=== PATIENT | female | born 1935 | race Caucasian/White ===

== ENCOUNTER 2018-08-30 21:59 | Inpatient (IN) | payer MEDICARE, BC ==
[2018-08-30] MEDS ORDERED: IPRATROPIUM-ALBUTEROL 3 ML NEB INHALATION STA (22:22)
[2018-08-30 22:53] LABS: Basophils % (A) 0 %; Eosinophils # (A) 1.1 k/uL (0-0.7); Eosinophils % (A) 10 %; HCT 39.4 % (34.0-46.0); HGB 12.6 gm/dL (11.4-16.0); Lymphocytes # (A) 1.7 k/uL (1.0-4.8); Lymphocytes % (A) 16 %; MCHC 32.1 g/dL (31.0-37.0); MCV 96.6 fL (80.0-100.0); Mean Platelet Volume 7.3; Monocytes # (A) 0.4 k/uL (0-1.0); Monocytes % (A) 4 %; Neutrophils # (A) 7.4 k/uL (1.3-7.7); Neutrophils % (A) 69 %; Platelet Count 307 k/uL (150-450); RBC 4.08 m/uL (3.80-5.40); RDW 12.2 % (11.5-15.5); WBC 10.7 k/uL (3.8-10.6)
[2018-08-30 23:03] LABS: Partial Thromboplastin Time 25.8 sec (22.0-30.0); Prothrombin Time 10.4 sec (9.0-12.0)
[2018-08-30 23:04] LABS: ALT 24 U/L (9-52); AST 28 U/L (14-36); African American GFR (CKD) >90 (>60 ml/min/1.73 sqM); Albumin 4.4 g/dL (3.5-5.0); Alkaline Phosphatase 118 U/L (38-126); Anion Gap 12 mmol/L; Blood Urea Nitrogen 23 mg/dL (7-17); Calcium 9.2 mg/dL (8.4-10.2); Carbon Dioxide 25 mmol/L (22-30); Chloride 103 mmol/L (98-107); Glucose 135 mg/dL (74-99); Potassium 3.6 mmol/L (3.5-5.1); Sodium 140 mmol/L (137-145); Total Bilirubin 0.5 mg/dL (0.2-1.3); Total Protein 7.4 g/dL (6.3-8.2)
--- NOTE | 2018-08-30 23:08 | XR ---
EXAM: XR Chest, 1 View CLINICAL HISTORY: Pain TECHNIQUE: Frontal view of the chest. COMPARISON: No relevant prior studies available. FINDINGS: Lungs: Hyperinflated lungs suggesting COPD. No consolidation. Pleural space: Unremarkable. No pneumothorax. Heart: Unremarkable. No cardiomegaly. Mediastinum: Unremarkable. Bones/joints: Unremarkable. IMPRESSION: Hyperinflated lungs suggesting COPD.
--- NOTE | 2018-08-30 23:23 | ED ---
SOB HPI - General Chief Complaint: Shortness of Breath Stated Complaint: ROYER Time Seen by Provider: 08/30/18 22:14 Source: patient Mode of arrival: ambulatory Limitations: no limitations - History of Present Illness Initial Comments: This patient is an 83-year-old woman presenting to be evaluated as she is having what she is describing as a more or less intractable coughing spell tonight. She was in her usual state of health until approximately 5 days ago when she developed a bit of coughing. She saw her primary physician in the clinic and was started on antibiotic. She has taken this as directed but states she is not really getting much better. has not noted fevers. She is not having chest pain. She is having some mild shortness of breath and a cough which is for the most part not productive of any sputum. MD Complaint: shortness of breath, cough Onset/Timin -: days(s) Severity: moderate Consistency: constant Improves With: nothing Worsens With: nothing Context: recent URI Treatments Prior to Arrival: other (Antibiotic) - Related Data Home Medications Medication Instructions Recorded Confirmed Levofloxacin [Levaquin] 500 mg PO DAILY 08/30/18 08/30/18 Multivitamins, Thera [Multivitamin 1 tab PO DAILY 08/30/18 08/30/18 (formulary)] Previous Rx's Medication Instructions Recorded Albuterol Inhaler [Ventolin Hfa 1 - 2 puff INHALATION Q6HR PRN #1 08/31/18 Inhaler] inhaler predniSONE 20 mg PO BID #8 tab 08/31/18 Allergies Allergy/AdvReac Type Severity Reaction Status Date / Time No Known Allergies Allergy Verified 08/30/18 22:22 Review of Systems ROS Statement: Those systems with pertinent positive or pertinent negative responses have been documented in the HPI. ROS Other: All systems not noted in ROS Statement are negative. Constitutional: Denies: fever, chills, weakness ENT: Reports: other (Rhinorrhea). Denies: congestion Respiratory: Reports: cough, dyspnea, wheezes. Denies: hemoptysis Cardiovascular: Denies: chest pain, palpitations, edema, syncope Gastrointestinal: Denies: abdominal pain, vomiting, diarrhea Genitourinary: Denies: dysuria, hematuria Musculoskeletal: Denies: back pain Skin: Denies: rash Neurological: Denies: headache, weakness, numbness Past Medical History Past Medical History: No Reported History Past Surgical History: Hysterectomy Additional Past Surgical History / Comment(s): left breast cyst removed, Past Psychological History: No Psychological Hx Reported Smoking Status: Former smoker Past Alcohol Use History: Daily Past Drug Use History: None Reported General Exam Limitations: no limitations General appearance: alert, in no apparent distress Head exam: Present: atraumatic, normocephalic Eye exam: Present: normal appearance. Absent: scleral icterus, conjunctival injection ENT exam: Present: normal oropharynx Neck exam: Present: normal inspection, full ROM Respiratory exam: Present: wheezes (Minimal expiratory wheeze), other (Patient is having frequent nonproductive cough during the exam.). Absent: respiratory distress, rales, rhonchi, stridor, accessory muscle use, decreased breath sounds, prolonged expiratory Cardiovascular Exam: Present: regular rate, normal rhythm, normal heart sounds. Absent: systolic murmur, diastolic murmur, rubs, gallop GI/Abdominal exam: Present: soft. Absent: distended, tenderness, guarding, rebound, rigid Extremities exam: Present: normal inspection, normal capillary refill. Absent: pedal edema, calf tenderness Back exam: Present: normal inspection. Absent: CVA tenderness (R), CVA tenderness (L) Neurological exam: Present: alert Skin exam: Present: warm, dry, intact, normal color. Absent: rash Course Vital Signs 08/30/18 08/30/18 08/30/18 22:02 22:16 22:38 Temperature 98.3 F Pulse Rate 111 H 90 Respiratory 28 H 34 H Rate Blood Pressure 183/93 O2 Sat by Pulse 87 L Oximetry 08/30/18 08/31/18 08/31/18 22:46 00:00 00:19 Temperature Pulse Rate 89 88 88 Respiratory Rate Blood Pressure O2 Sat by Pulse Oximetry 08/31/18 08/31/18 01:13 04:16 Temperature Pulse Rate 81 73 Respiratory 18 20 Rate Blood Pressure 137/78 110/56 O2 Sat by Pulse 89 L 94 L Oximetry Medical Decision Making - Medical Decision Making Patient is an 83-year-old woman with cough and mild dyspnea. She is given albuterol treatment which did give marketed improvement in her cough. She feels that her breathing is almost back at her baseline. She did request to go home but she does have persistent low pulse oximetry readings. When taken off the supplemental nasal cannula oxygen she drops to the upper 80s and the pulse oximetry reading. She does not have known history of COPD. Given this patient be admitted to have a day of steroid treatment, to have nebulized medications, and to continue her antibiotics. Case discussed with Dr. Gandhi who will admit. - Lab Data Result diagrams: 08/30/18 22:37 08/30/18 22:37 Lab Results 08/30/18 08/30/18 08/30/18 Range/Units 22:37 22:37 22:37 WBC 10.7 H (3.8-10.6) k/uL RBC 4.08 (3.80-5.40) m/uL Hgb 12.6 (11.4-16.0) gm/dL Hct 39.4 (34.0-46.0) % MCV 96.6 (80.0-100.0) fL MCH 31.0 (25.0-35.0) pg MCHC 32.1 (31.0-37.0) g/dL RDW 12.2 (11.5-15.5) % Plt Count 307 (150-450) k/uL Neutrophils % 69 % Lymphocytes % 16 % Monocytes % 4 % Eosinophils % 10 % Basophils % 0 % Neutrophils # 7.4 (1.3-7.7) k/uL Lymphocytes # 1.7 (1.0-4.8) k/uL Monocytes # 0.4 (0-1.0) k/uL Eosinophils # 1.1 H (0-0.7) k/uL Basophils # 0.0 (0-0.2) k/uL PT 10.4 (9.0-12.0) sec INR 1.0 (<1.2) APTT 25.8 (22.0-30.0) sec D-Dimer (<0.60) mg/L FEU Sodium 140 (137-145) mmol/L Potassium 3.6 (3.5-5.1) mmol/L Chloride 103 (98-107) mmol/L Carbon Dioxide 25 (22-30) mmol/L Anion Gap 12 mmol/L BUN 23 H (7-17) mg/dL Creatinine 0.63 (0.52-1.04) mg/dL Est GFR (CKD-EPI)AfAm >90 (>60 ml/min/1.73 sqM) Est GFR (CKD-EPI)NonAf 83 (>60 ml/min/1.73 sqM) Glucose 135 H (74-99) mg/dL Calcium 9.2 (8.4-10.2) mg/dL Total Bilirubin 0.5 (0.2-1.3) mg/dL AST 28 (14-36) U/L ALT 24 (9-52) U/L Alkaline Phosphatase 118 (38-126) U/L Troponin I (0.000-0.034) ng/mL NT-Pro-B Natriuret Pep pg/mL Total Protein 7.4 (6.3-8.2) g/dL Albumin 4.4 (3.5-5.0) g/dL 08/30/18 08/30/18 08/30/18 Range/Units 22:37 22:37 22:37 WBC (3.8-10.6) k/uL RBC (3.80-5.40) m/uL Hgb (11.4-16.0) gm/dL Hct (34.0-46.0) % MCV (80.0-100.0) fL MCH (25.0-35.0) pg MCHC (31.0-37.0) g/dL RDW (11.5-15.5) % Plt Count (150-450) k/uL Neutrophils % % Lymphocytes % % Monocytes % % Eosinophils % % Basophils % % Neutrophils # (1.3-7.7) k/uL Lymphocytes # (1.0-4.8) k/uL Monocytes # (0-1.0) k/uL Eosinophils # (0-0.7) k/uL Basophils # (0-0.2) k/uL PT (9.0-12.0) sec INR (<1.2) APTT (22.0-30.0) sec D-Dimer 0.80 H (<0.60) mg/L FEU Sodium (137-145) mmol/L Potassium (3.5-5.1) mmol/L Chloride (98-107) mmol/L Carbon Dioxide (22-30) mmol/L Anion Gap mmol/L BUN (7-17) mg/dL Creatinine (0.52-1.04) mg/dL Est GFR (CKD-EPI)AfAm (>60 ml/min/1.73 sqM) Est GFR (CKD-EPI)NonAf (>60 ml/min/1.73 sqM) Glucose (74-99) mg/dL Calcium (8.4-10.2) mg/dL Total Bilirubin (0.2-1.3) mg/dL AST (14-36) U/L ALT (9-52) U/L Alkaline Phosphatase (38-126) U/L Troponin I 0.017 (0.000-0.034) ng/mL NT-Pro-B Natriuret Pep 171 pg/mL Total Protein (6.3-8.2) g/dL Albumin (3.5-5.0) g/dL - EKG Data -: EKG Interpreted by Me EKG shows normal: sinus rhythm (With PACs, rate 86 bpm), axis (Normal), intervals (Normal), QRS complexes (Normal), ST-T waves (Normal) Rate: normal Disposition Clinical Impression: Bronchitis Disposition: ADMITTED IP TO THIS [facility] Condition: Fair Is patient prescribed a controlled substance at d/c from ED?: No
[2018-08-30] MEDS ORDERED: ALBUTEROL NEBULIZED 2.5 MG/3 ML INHALATION STA (23:31)
[2018-08-30] MEDS ORDERED: predniSONE 20 MG TAB PO STA (23:31)
--- NOTE | 2018-08-31 02:46 | CT ---
EXAM: CT Angiography Chest With Intravenous Contrast CLINICAL HISTORY: Pain TECHNIQUE: Axial computed tomographic angiography images of the chest with intravenous contrast using pulmonary embolism protocol. CTDI is 0.085, 0. 085, 1.5, 1.5, 1.5, 6 mGy and DLP is 184.3 mGy-cm. This CT exam was performed using one or more of the following dose reduction techniques: automated exposure control, adjustment of the mA and/or kV according to patient size, and/or use of iterative reconstruction technique. MIP reconstructed images were created and reviewed. COMPARISON: No relevant prior studies available. FINDINGS: Pulmonary arteries: No evidence of pulmonary embolus. Aorta: No acute findings. No thoracic aortic aneurysm. Lungs: Probable atelectasis and scarring within the right middle lobe. Infectious process is not excluded. Moderate bronchial wall thickening with mucus impaction seen within the lower lobes which may represent bronchitis. No mass. Pleural space: Unremarkable. No significant effusion. No pneumothorax. Heart: Unremarkable. No cardiomegaly. No significant pericardial effusion. No evidence of RV dysfunction. Bones/joints: No acute fracture. No dislocation. Soft tissues: Unremarkable. Lymph nodes: Subcentimeter mediastinal and hilar lymph nodes, likely reactive. IMPRESSION: 1. No evidence of pulmonary embolus. 2. Probable atelectasis and scarring within the right middle lobe. An infectious process is not excluded. 3. Moderate bronchial wall thickening with mucus impaction seen within the lower lobes which may represent bronchitis.
[2018-08-31] MEDS ORDERED: ALBUTEROL NEBULIZED 2.5 MG/3 ML INHALATION PRN (02:53)
[2018-08-31] MEDS: SODIUM CHLORIDE 0.9% 1,000 ML IV SCH (05:02)
[2018-08-31] MEDS: IPRATROPIUM-ALBUTEROL 3 ML NEB INHALATION SCH ×4 (08:23→19:59)
[2018-08-31] MEDS: predniSONE 20 MG TAB PO SCH (09:08)
[2018-08-31] MEDS: AZITHROMYCIN 500 MG TAB PO SCH (09:08)
--- NOTE | 2018-08-31 10:14 | HP ---
HISTORY AND PHYSICAL CHIEF COMPLAINT: Shortness of breath, difficulty breathing and nonproductive cough. HISTORY OF PRESENT ILLNESS: This is apparently another admission for this very well-preserved and healthy 83-year- old white female. She started to have a bronchitis type symptoms 2-3 weeks ago with congestion, persistent cough and came to the office. Chest x-ray was normal. It was felt that this probably was either viral or an allergic basis. She was started on antibiotics and continued to have difficulty. She became very short of breath. She came to the emergency room. There her studies were unremarkable and there is no definite pneumonia. She had slightly elevated D-dimer, but she had no symptoms of pulmonary thrombotic disease and her CTA was negative. She has had no fever, chest pain, etc. She has never smoked. When asked if she has never had any allergies, she states, "no", but then she goes on to say that for 10 years, she was once treated for allergies to grass and tree pollen. It is likely given the high pollen count this spring, this is her problem. REVIEW OF SYSTEMS: She has had no headaches, neurologic problems, difficulty with vision or hearing, hemoptysis, heart disease, hypertension, murmurs, rheumatic fever, orthopnea, PND, abdominal pain, nausea, vomiting, melena, hematochezia, jaundice, renal failure, hematuria, frequency, urgency and dysuria, incontinence, diabetes, etc. Past medical history, family history, personal and social histories are unremarkable and noncontributory. She is not allergic to anything and takes no medicines regularly. She has been on Levaquin 500 once a day only. She has never smoked. Surgically, she had a benign left breast biopsy in the past. PHYSICAL EXAMINATION: Blood pressure 123/78 with a pulse of 64, respirations of 33 and she is afebrile. In general, she appeared quite pale and asthenic. Skin was dry. Lymph nodes not enlarged. Head, ears, eyes, nose, mouth, and throat were normal. There is no neck vein distention. Carotids normal. Chest demonstrated only occasional rales and she had congested sounding cough, but no rhonchi or wheezing. Cardiac exam demonstrates sinus rhythm and no murmurs or extra sounds. Abdomen is flat, soft, nontender and extremities are normal. Neurologically she is intact. She is admitted to the hospital with diagnoses of: 1. Acute reactive airway disease. 2. Slightly elevated BNP. 3. Slightly elevated D-dimer. PLAN: 1. Bed rest. 2. IV fluids. 3. IV and inhaled steroids. 4. Nasalide for allergic rhinitis. 5. Updrafts. 6. Short course of oral steroids. MMODL / TANVIN: [id number] /
[2018-08-31 11:53] VITALS: BMI 17.8
[2018-08-31] MEDS: FLUTICASONE 50MCG/SPRAY NASAL 16GM EA NOSTRIL SCH (14:08)
[2018-08-31] MEDS: SYMBICORT 160-4.5 MCG INHALER INHALATION SCH (19:59)
[2018-09-01] MEDS: SODIUM CHLORIDE 0.9% 1,000 ML IV SCH (04:21)
[2018-09-01 07:51] VITALS: BP 140/82; RESP 16; TEMP 98.9
[2018-09-01] MEDS: IPRATROPIUM-ALBUTEROL 3 ML NEB INHALATION SCH ×2 (08:23→11:23)
[2018-09-01] MEDS: SYMBICORT 160-4.5 MCG INHALER INHALATION SCH (08:23)
[2018-09-01 08:36] VITALS: PULSE 70
[2018-09-01] MEDS: AZITHROMYCIN 500 MG TAB PO SCH (09:20)
[2018-09-01] MEDS: FLUTICASONE 50MCG/SPRAY NASAL 16GM EA NOSTRIL SCH (09:20)
[2018-09-01] MEDS: predniSONE 20 MG TAB PO SCH (09:20)
--- NOTE | 2018-09-01 13:03 | DS ---
DISCHARGE SUMMARY CHIEF COMPLAINT: Cough and shortness of breath. HISTORY OF PRESENT ILLNESS AND PHYSICAL EXAM: Details of this lady's history and physical can be found in the initial workup. LABORATORY STUDIES: While she was in the hospital she had laboratory studies, details of which can be found in the laboratory section of her chart. COURSE IN HOSPITAL: After admission she was placed on bedrest, started on intravenous fluids, steroids and antibiotics as well as updrafts. She did well and continued to improve. It was felt likely that this was related to allergies and that she had an allergic bronchitis and rhinitis. She was doing well and felt she could be discharged. She will go home on the Medrol Dosepak, Claritin 10 mg once a day, Nasacort, Singulair, and an albuterol inhaler as well as Zithromax. She will be seen in the office in a day or 2. FINAL DIAGNOSES: 1. Reactive airway disease. 2. Allergic rhinitis. OPERATIONS: None. CONSULTATION: None. She is improved. MMODL / TANVIN: [id number] /
[2018-09-01] MEDS ORDERED: MONTELUKAST 10 MG TAB PO SCH (21:00)
[2018-09-02] MEDS ORDERED: methylPREDNISolone 4 MG TAB TAPER PO SCH (09:00)
[2018-09-02] MEDS ORDERED: LORATADINE 10 MG TAB PO SCH (09:00)
== END 2018-09-01 12:20 | disposition home or self-care (01) | DRG 203 ==
LOC: EC 21:59 → 4SSUR 08-31 02:53
PROVIDERS: ADMIT Family Medicine; ATTEND Family Medicine
DX: J45.909 Unspecified asthma, uncomplicated (principal); R79.1 Abnormal coagulation profile; R79.89 Other specified abnormal findings of blood chemistry; Z90.710 Acquired absence of both cervix and uterus; Z87.891 Personal history of nicotine dependence; Z79.2 Long term (current) use of antibiotics; Z79.52 Long term (current) use of systemic steroids
CPT/HCPCS: 36415; 71045; 71275; 80053; 82785; 83880; 84484; 85025; 85379; 85610; 85730; 86738; 87040; 87449; 93005; 94640; 94760; 99285

== ENCOUNTER 2020-01-25 12:36 | Emergency (ER) | payer MEDICARE, BC ==
[2020-01-25 12:42] VITALS: RESP 18
[2020-01-25] MEDS ORDERED: MECLIZINE 12.5 MG TAB PO STA (13:17)
[2020-01-25] MEDS ORDERED: SODIUM CHLORIDE 0.9% 500 ML 500 ML IV STA (13:17)
--- NOTE | 2020-01-25 13:21 | ED ---
General Adult HPI - General Chief complaint: Dizziness Stated complaint: dizziness Time Seen by Provider: 01/25/20 12:40 Source: patient, RN notes reviewed, old records reviewed Mode of arrival: wheelchair Limitations: no limitations - History of Present Illness Initial comments: This is an 84-year-old female who presents to the emergency department com plaining of dizziness. Patient states it started last night when she was in a chair she felt like things were moving but midnight she decided to go to bed any help. Patient states when she woke up to go to the bathroom she was going to the bathroom on the toilet and was very dizzy and she went to get up and she felt for to the carpet. Patient states it felt like everything around her was moving. Patient states moving her head deftly makes it worse. Patient states she feels considerably better now but not quite back to normal. Patient denies any headache patient denies any difficulty hearing or changes in hearing. Patient denies any ringing in her ear. Patient denies any chest pain pa lpitations difficulty breathing shortness of breath. Patient denies any abdominal pain patient denies nausea vomiting diarrhea. Patient denies any coordination problems as far as using her hands. Patient was able to ambulate. - Related Data Home Medications Medication Instructions Recorded Confirmed Albuterol Sulfate [Ventolin HFA] 2 puff INHALATION RT-QID PRN 01/25/20 01/25/20 Budesonide-Formot 160-4.5 Mcg 2 puff INHALATION RT-BID PRN 01/25/20 01/25/20 [Symbicort 160-4.5 Mcg Inhaler] Ergocalciferol [Vitamin D2] 50,000 unit PO WE 01/25/20 01/25/20 Previous Rx's Medication Instructions Recorded Loratadine [Claritin] 10 mg PO DAILY #30 tab 09/01/18 Meclizine [Antivert] 12.5 mg PO Q8HR #20 tablet 01/25/20 Allergies Allergy/AdvReac Type Severity Reaction Status Date / Time No Known Allergies Allergy Verified 01/25/20 13:38 Review of Systems ROS Statement: Those systems with pertinent positive or pertinent negative responses have been documented in the HPI. ROS Other: All systems not noted in ROS Statement are negative. Past Medical History Past Medical History: No Reported History Additional Past Medical History / Comment(s): seasonal allergies History of Any Multi-Drug Resistant Organisms: None Reported Past Surgical History: Hysterectomy Additional Past Surgical History / Comment(s): left breast cyst removed, Past Psychological History: No Psychological Hx Reported Smoking Status: Never smoker Past Alcohol Use History: Daily Past Drug Use History: None Reported General Exam - General Exam Comments Initial Comments: GENERAL: Patient is well-developed and well-nourished. Patient is nontoxic and well- hydrated and is in mild distress. ENT: Neck is soft and supple. No significant lymphadenopathy is noted. Oropharynx is clear. Moist mucous membranes. Neck has full range of motion without eliciting any pain. EYES: The sclera were anicteric and conjunctiva were pink and moist. Extraocular movements were intact and pupils were equal round and reactive to light. Eyeli ds were unremarkable. PULMONARY: Unlabored respirations. Good breath sounds bilaterally. No audible rales rhonchi or wheezing was noted. CARDIOVASCULAR: There is a regular rate and rhythm without any murmurs gallops or rubs. ABDOMEN: Soft and nontender with normal bowel sounds. SKIN: Skin is clear with no lesions or rashes and otherwise unremarkable. NEUROLOGIC: Patient is alert and oriented x3. Cranial nerves II through XII are grossly intact. Motor and sensory are also intact. Normal speech, volume and content. Symmetrical smile. MUSCULOSKELETAL: Normal extremities with adequate strength and full range of motion. No lower extremity swelling or edema. No calf tenderness. LYMPHATICS: No significant lymphadenopathy is noted PSYCHIATRIC: Normal psychiatric evaluation. Limitations: no limitations Course Vital Signs 01/25/20 01/25/20 12:38 14:12 Temperature 97.7 F Pulse Rate 64 60 Respiratory 18 18 Rate Blood Pressure 186/47 157/77 O2 Sat by Pulse 98 99 Oximetry Medical Decision Making - Medical Decision Making EKG shows normal sinus rhythm at 60 bpm [place] interval is on a 56 QRS is 90 QT interval 466 QTC is 456. Patient's EKG shows no ST segment elevation or depression. Chest x-ray shows no acute normalities. Patient is only having minimal symptoms after having been in the ER couple hours. - Lab Data Result diagrams: 01/25/20 13:32 01/25/20 13:32 Lab Results 01/25/20 01/25/20 01/25/20 Range/Units 13:32 13:32 13:32 WBC 7.5 (3.8-10.6) k/uL RBC 3.92 (3.80-5.40) m/uL Hgb 12.8 (11.4-16.0) gm/dL Hct 37.9 (34.0-46.0) % MCV 96.7 (80.0-100.0) fL MCH 32.6 (25.0-35.0) pg MCHC 33.7 (31.0-37.0) g/dL RDW 12.0 (11.5-15.5) % Plt Count 274 (150-450) k/uL MPV 7.9 Neutrophils % (Manual) 44 % Lymphocytes % (Manual) 14 % Monocytes % (Manual) 12 % Eosinophils % (Manual) 30 % Neutrophils # (Manual) 3.30 (1.3-7.7) k/uL Lymphocytes # (Manual) 1.05 (1.0-4.8) k/uL Monocytes # (Manual) 0.90 (0-1.0) k/uL Eosinophils # (Manual) 2.25 H (0-0.7) k/uL Nucleated RBCs 0 (0-0) /100 WBC Manual Slide Review Performed PT 10.3 (9.0-12.0) sec INR 1.0 (<1.2) APTT 24.3 (22.0-30.0) sec Sodium 137 (137-145) mmol/L Potassium 4.0 (3.5-5.1) mmol/L Chloride 105 (98-107) mmol/L Carbon Dioxide 27 (22-30) mmol/L Anion Gap 5 mmol/L BUN 22 H (7-17) mg/dL Creatinine 0.75 (0.52-1.04) mg/dL Est GFR (CKD-EPI)AfAm 85 (>60 ml/min/1.73 sqM) Est GFR (CKD-EPI)NonAf 74 (>60 ml/min/1.73 sqM) Glucose 91 (74-99) mg/dL Calcium 8.9 (8.4-10.2) mg/dL Magnesium 1.9 (1.6-2.3) mg/dL Total Bilirubin 0.8 (0.2-1.3) mg/dL AST 25 (14-36) U/L ALT 13 (4-34) U/L Alkaline Phosphatase 101 (38-126) U/L Troponin I (0.000-0.034) ng/mL Total Protein 6.9 (6.3-8.2) g/dL Albumin 3.8 (3.5-5.0) g/dL 01/25/20 Range/Units 13:32 WBC (3.8-10.6) k/uL RBC (3.80-5.40) m/uL Hgb (11.4-16.0) gm/dL Hct (34.0-46.0) % MCV (80.0-100.0) fL MCH (25.0-35.0) pg MCHC (31.0-37.0) g/dL RDW (11.5-15.5) % Plt Count (150-450) k/uL MPV Neutrophils % (Manual) % Lymphocytes % (Manual) % Monocytes % (Manual) % Eosinophils % (Manual) % Neutrophils # (Manual) (1.3-7.7) k/uL Lymphocytes # (Manual) (1.0-4.8) k/uL Monocytes # (Manual) (0-1.0) k/uL Eosinophils # (Manual) (0-0.7) k/uL Nucleated RBCs (0-0) /100 WBC Manual Slide Review PT (9.0-12.0) sec INR (<1.2) APTT (22.0-30.0) sec Sodium (137-145) mmol/L Potassium (3.5-5.1) mmol/L Chloride (98-107) mmol/L Carbon Dioxide (22-30) mmol/L Anion Gap mmol/L BUN (7-17) mg/dL Creatinine (0.52-1.04) mg/dL Est GFR (CKD-EPI)AfAm (>60 ml/min/1.73 sqM) Est GFR (CKD-EPI)NonAf (>60 ml/min/1.73 sqM) Glucose (74-99) mg/dL Calcium (8.4-10.2) mg/dL Magnesium (1.6-2.3) mg/dL Total Bilirubin (0.2-1.3) mg/dL AST (14-36) U/L ALT (4-34) U/L Alkaline Phosphatase (38-126) U/L Troponin I <0.012 (0.000-0.034) ng/mL Total Protein (6.3-8.2) g/dL Albumin (3.5-5.0) g/dL Disposition Clinical Impression: Vertigo Disposition: HOME SELF-CARE Condition: Good Instructions (If sedation given, give patient instructions): Vertigo (ED) Prescriptions: Meclizine [Antivert] 12.5 mg PO Q8HR #20 tablet Is patient prescribed a controlled substance at d/c from ED?: No Referrals: Arnaldo Gandhi MD [Primary Care Provider] - 1-2 days Time of Disposition: 15:17
[2020-01-25 13:41] LABS: HCT 37.9 % (34.0-46.0); HGB 12.8 gm/dL (11.4-16.0); MCH 32.6 pg (25.0-35.0); MCHC 33.7 g/dL (31.0-37.0); MCV 96.7 fL (80.0-100.0); Mean Platelet Volume 7.9; Platelet Count 274 k/uL (150-450); RBC 3.92 m/uL (3.80-5.40); WBC 7.5 k/uL (3.8-10.6)
[2020-01-25 13:52] LABS: Partial Thromboplastin Time 24.3 sec (22.0-30.0); Prothrombin Time 10.3 sec (9.0-12.0)
[2020-01-25 13:59] LABS: Eosinophils # (M) 2.25 k/uL (0-0.7); Lymphocytes # (M) 1.05 k/uL (1.0-4.8); Neutrophils % (M) 44 %; Nucleated Red Blood Cells 0 /100 WBC (0-0); Total Cells Counted 100
[2020-01-25 14:05] LABS: Albumin 3.8 g/dL (3.5-5.0); Calcium 8.9 mg/dL (8.4-10.2); Magnesium 1.9 mg/dL (1.6-2.3); Total Bilirubin 0.8 mg/dL (0.2-1.3); Total Protein 6.9 g/dL (6.3-8.2)
--- NOTE | 2020-01-25 14:42 | XR ---
EXAMINATION TYPE: XR chest 2V DATE OF EXAM: 01/25/2020 COMPARISON: 08/30/2018 HISTORY: 84-year-old female with chest pain and syncope TECHNIQUE: PA and lateral views FINDINGS: Heart normal size. Rightward patient rotation ultrasound and normal cardiac and mediastinal contours. Hyperinflation with increased AP chest diameter. Aorta and pulmonary vasculature within normal limit s. No consolidation or pleural effusion. IMPRESSION: Rotated exam. COPD. No definite acute process.
[2020-01-25 15:27] VITALS: BP 154/74; PULSE 57; TEMP 98
== END 2020-01-25 15:24 | disposition home or self-care (01) ==
LOC: EC 12:36
DX: R42 Dizziness and giddiness (principal)
CPT/HCPCS: 36415; 71046; 80053; 83735; 84484; 85025; 85610; 85730; 93005; 99284